=== PATIENT | male | born 1965 | race Caucasian/White ===

== ENCOUNTER 2024-12-23 13:05 | Outpatient (REF) | payer OTHER, SELFPAY ==
--- NOTE | ~2024-12-23 | XR_ITS ---
CLINICAL HISTORY: R07.81 - Pleurodynia Single view of the chest with left rib films. COMPARISON: None FINDINGS: Normal heart and mediastinal contours. Minimal subsegmental atelectasis along the left lung base. No pleural effusion or pneumothorax. No fracture identified. IMPRESSION: 1. Minimal subsegmental atelectasis along the left lung base. 2. No rib fracture identified. This document has been electronically signed by: Wei Abbott MD on 12/23/2024 15:53:03
--- OUTSIDE RECORDS SUMMARY | 2024-12-23 17:34 | XMS_ITS | Clinical Summary ---
Author Organization [facility] Address [address] [place] [address] Care Team Providers Care Fashion Consultant Name Role Phone Nena Dooley Primary Care Provider [phone] Nena Dooley Unavailable [phone] Medications Multiple Vitamin (Multivitamins) capsule TAKE 1 CAPSULE DAILY. capsule 0 09/08/2015 Active Atorvastatin Calcium (LIPITOR) 20 MG tablet TAKE 1 TABLET DAILY DIRECTED. 90 0 09/08/2015 Active Sildenafil Citrate (Viagra) 100 MG tablet TAKE 1 TABLET DAILY 1 HOUR BEFORE NEEDED 1 0 03/28/2017 Active Active Problems Problem Noted Date Diagnosed Date Preop examination 08/13/2017 Erectile dysfunction 03/28/2017 Overview (10/05/2023): Impression - [id number]: Rx for Viagra 50mg. ADRs and alternatives discussed. Caution re: hypotension. Take 1 tablet 1 hour prior to activity and if tolerated can take 2 tablets prn. Intertrigo 03/28/2017 Overview (10/05/2023): Impression - 13Xkg6733: Recommend fluconazole PO and clotraimzole cream prn. Encouraged to keep the area as dry as possible. Chronic urethral stricture 03/28/2017 Overview (10/05/2023): Impression - 67Uid1578: Referred to urology, Dr. Mitchel Shaver 01/13/2017 Omid nunes 01/13/2017 Overview (10/05/2023): Impression - 29Ujp5023: Change to nystatin. Counseled re: need to use TID regularly. Keep dry. If no better in 6 weeks, refer back to [facility] for evaluation Complaints of leg weakness 01/02/2016 Overview (10/05/2023): Impression - 59Tcs9861: refer to PT Anterior tibialis tendinitis, left 01/02/2016 Overview (10/05/2023): Impression - 38Bhg8402: Ice, elevation, no recreational walking. Prescription for diclofenac sodium 75 milligrams twice a day. He is aware he needs to stop this 7 days before the surgery Hip joint stiffness 09/08/2015 Overview (10/05/2023): Impression - 08Sep2015: X-ray left hip Overweight (BMI 25.0-29.9) 06/20/2015 Vitamin D deficiency 12/30/2014 Overview (10/05/2023): Impression - 07Hkc8278: Encouraged 1000 IU Vitamin D daily in [...] 3 months, no appointment needed Impression - 57Gmv4832: Controlled, continue current treatment. Immunizations Name Administration [...] 11:33 AM EDT [facility] Date/Time: [id number] [facility] Testing performed at: 1, [facility], [address] [place] [address], [address], [place], [address], Print Inspector: Enedina Orozco MD [facility] Date/Time: [id number] [facility] Results Received Date/Time: [id number] [facility] Reported Date/Time: [id number] Rory Alvarez MD LABORATORY Final Res ult PHCT CONVERSIONS from Last 3 Months or Most Recently Relevant to Health Maintenance Care Teams Fashion Consultant Relationship Specialty Start Date End Date Nena Dooley PA [address] [place] [address] PCP - General 04/07/23 Nena Dooley PA [address] [place] [address] PCP - Backup PCP Family Medicine 10/02/23
--- OUTSIDE RECORDS SUMMARY | 2024-12-23 17:34 | XMS_ITS | Clinical Summary ---
Author Organization [facility] Address [address] [place] [address] Care Team Providers Care Opener Tender Name Role Phone Rory Alvarez MD Primary [...] age to complete this topic Care Teams Opener Tender Relationship Specialty Start Date End Date Rory Alvarez MD PCP - General Family Medicine 07/04/15
--- OUTSIDE RECORDS SUMMARY | 2024-12-23 17:34 | XMS_ITS | Clinical Summary ---
Author Organization [facility] Address [address] [place] [address] Care Team Providers Care Doctor'S Assistant Name Role Phone Unavailable Primary Care Provider [...]
--- OUTSIDE RECORDS SUMMARY | 2024-12-23 17:34 | XMS_ITS | Clinical Summary ---
Author Organization [facility] Address [address] [place] [address] Care Team Providers Care Remote Control Assembler Name Role Phone Nena Dooley PA-C Primary [...] Inactivated Comments 08/19/2017 7:49 AM Care Teams Remote Control Assembler Relationship Specialty Start Date End Date Nena Dooley, NOVAC 8-D CANAL [facility] [place] [address] PCP - General Surgery, General 04/16/17
== END 2024-12-23 13:06 | disposition home or self-care (01) ==
LOC: HO.HMGCX 13:05
PROVIDERS: Visit Provider Physician Assistant
DX: R07.81 Pleurodynia (principal)
CPT/HCPCS: 71101

== ENCOUNTER 2024-12-23 13:05 | Outpatient (AMB) | payer OTHER, SELFPAY ==
--- NOTE | 2024-12-23 14:33 | AM.OFFWIN_ITS ---
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 Patient Tobacco Use Status: Never used Tobacco Allergies No Known Allergies Allergy (Verified 12/23/24 14:35) Do you need a note to return to daycare/school/sports/work: No HPI HPI Comments History of Present Illness Details History of Present Illness - The patient is a 59-year-old male pres enting with left sided rib pain x 4 days. - Pain began a few days ago after engagi ng in a physical workout following a long period of inactivity. - Described as becoming more painful wit h palpation, the pain is localized to the rib area, predominantly anteriorly. - The patient denies respiratory symptom s, recent trauma, fevers, or significant changes in urinary function or history of kidney stones. The pain is not worse with deep inspiration. - There is a history of gastroesophageal reflux disease, but no current reflux symptoms were noted. Physical Exam General: Cooperative, healthy appearing, comfortable, no acute distress and well developed Orientation: Patient oriented x3 Limitations: No limitations Head: Normal to inspection Ears: Hearing grossly normal bilaterally Nose: Normal External nose present Face and sinus: Normal facial exam Eyes: Appearance normal, both eyes and all related structures Neck: Normal visual inspection and Yes full ROM Chest: TTP left midaxiallary line T7-T8 area, no skin changes noted, no ecchymosis or rashes Respiratory: Normal respiratory effort and able to speak in complete sentences. Clear to auscultation bilaterally Cardiovascular: Regular rate and rhythm. Normal S1 and S2 Skin: No rashes or lesions noted Neuro: Patient oriented x3 Extremities: Normal to inspection PFSH Social History Patient Tobacco Use Status: Never used Tobacco Review of Systems Const All systems reviewed & are unremarkable except as noted in HPI and below Physical Exam Vital Signs: Last Vital Signs Pulse 73 12/23/24 14:35 BP 126/80 12/23/24 14:35 Pulse Ox 98 12/23/24 14:35 Oxygen Delivery Method Room Air 12/23/24 14:35 Assessment & Plan Assessment & Plan (1) Rib pain on left side: Code(s): R07.81 - Pleurodynia Plan: VSS, pt well appearing and PE remarkable for reproducible left sided rib pain at the midaxillary line. Likely musculoskeletal from swimming, which is a new activity. However, as pain is getting worse over the last week, instead of better, I have ordered a rib and chest x-ray to rule out rib fracture and evaluate any underlying conditions. I have recommended Aleve naproxen twice daily for three days to manage the patient's musculoskeletal pain. The patient is advised to refrain from strenuous workouts until pain subsides to prevent further aggravation. Patient was informed and verbally consented to the use of an ambient scribe for clinic note documentation during this visit. Orders: Orders XR ribs LT min 3V w CXR1V Today R07.81 - Pleurodynia Coding Level of Care Code Est Pt Level 4 (12029) Diagnoses Rib pain on left side R07.81
[2024-12-23 14:35] VITALS: BP 126/80; PULSE 73; O2SAT 98
--- OUTSIDE RECORDS SUMMARY | 2024-12-23 15:24 | XMS_ITS | Patient Health Record ---
Author Organization [facility] Address [address] [place] [address] Care Team Providers Care Camera Repairer Name Role Phone LELE DELCID Primary Care Provider Allergies No Known Allergies Reason For Referral No Information Social History Tobacco Use: Social History Observation Description Date Details (start date - stop date) Never Smoker NA - NA Sex Assigned At : Social History Observation Description Sex Assigned At Male Tobacco Use/Smoking Question Answer Notes Are you a: never smoker Sexual History Question Answer Notes Had sex in the past 12 months (vaginal, oral, or anal)? Yes with Women only Use protection? Yes How often? All of the time Prevention strategies discussed: Condoms Have you ever had a Sexually transmitted disease ? No SBIRT (2018 Edition) Question Answer Notes Patient refused/declined SBIRT screening at this time? No 1. How often do you have a drink containing alco hol? Monthly or less 2. How many drinks containin g alcohol do you have on a typical day when you are drinking? 1 or 2 3. How often do you have five or more drinks on one occasion? Never SCORE 1 Interpretation Negative How many times in the past y ear have you used an illegal drug or used a prescription medication for non-medical reasons? 0 Total Count 0 Interpretation Negative Problems Problem Type SNOMED Code ICD Code Onset Dates Problem Status W/U Status Risk Notes Problem 256565167 Tinea cruris (B35.6) Active confirmed 50% improvement with ketoconazole; trial terbinafine topical. Pt defers oral tx at this time Problem 86169064494208230 Impingement syndrome of right shoulder (M75.41) Active confirmed Problem 352889396742411 Impingement syndrome of left shoulder (M75.42) Active confirmed Problem Unspecified membranous urethral stricture, male (N35.913) Active confirmed Hx 4 surgeries. Chronic voiding and storage sx. Problem Hyperlipidemia (86124709) Hyperlipidemia (E78.49) Active confirmed 01/2022: TC 203, HDL 40, LDL 135. Problem 236121931 Overweight (BMI 25.0-29.9) (E66.3) Active confirmed Problem 82438832 Hemorrhoids, external (K64.4) Active confirmed Problem Tear of right glenoid labrum, initial encounter (S43.431A) Active confirmed 11/2021: Right shoulder MRI tear of superior and posterior labrum with associated paralabral cyst. Problem Tear of left glenoid labrum, initial encounter (S43.432A) 2021 Active confirmed 11/2021: Left shoulder MRI large tear of anterior labrum with smaller tear of posterior labrum without involvement of biceps labral anchor. No rotator cuff tear with mild supraspinatus tendinosis. Plan Of Treatment No Information Insurance Providers Payer Name Payer Address Payer Phone Subscriber Number Group Number Insured Name Patient Relationship to Insured Coverage Start Date Coverage End Date MEDICAID EST PT [address] [address] [place] [phone] [id number] ENMANUEL BEARD Self - patient is the insured 0 Medical (General) History Medical History History ICD Code HIGH CHOLESTEROL- PAST Right rotator cuff issues Surgical History Surgery Date(Month/Year) APPENDIX URINARY TRACT STRICTURE X 2016 Hospitalization History Reason Date(Month/Year)
--- OUTSIDE RECORDS SUMMARY | 2024-12-23 15:24 | XMS_ITS | Clinical Summary ---
Author Organization [facility] Address [address] [place] [address] Care Team Providers Care Stay Cutter Name Role Phone Nena Dooley PA-C Primary Care Provider Allergies No known active allergies Medications atorvastatin (LIPITOR) 20 MG tablet Take 20 mg by mouth daily. as directed 1 7 Active multivitamin (multivitamin) Tab tablet Take 1 tablet by mouth daily. Active VIAGRA 100 MG tablet TAKE 1 TABLET DAILY 1 HOUR BEFORE NEEDED 0 7 Active tadalafil (CIALIS) 20 MG tabletIndications: Erectile dysfunction due to arterial insufficiency Take 1 tablet (20 mg total) by mouth daily as needed for erectile dysfunction. 6 tablet 3 8 Active Active Problems Problem Noted Date Diagnosed Date Urethral stricture 08/19/2017 Family History Medical History Relation Name Comments Stroke Brother 1 68 No Known Problems Brother 2 No Known Problems Brother 3 Relation Name Status Comments Brother 1 68 Alive Brother 2 Alive Brother 3 Alive Father (Age 89) natural Mother (Age 79) Natural Social History Tobacco Use Types Packs/Day Years Used Date Smoking Tobacco: Never Smokeless Tobacco: Never Alcohol Use Standard Drinks/Week Comments Yes 0 (1 standard drink = 0.6 oz pur e alcohol) once per month Sex and Gender Information Value Date Recorded Sex Assigned at Not on file Legal Sex Male 3:55 PM EDT Gender Identity Not on file Sexual Orientation Not on file Last Filed Vital Signs Vital Sign Reading Time Taken Comments Blood Pressure 105/66 08/19/2017 10:15 AM EST Pulse 98 08/22/2017 8:38 AM EST Temperature 36.5 ??C (97.7 ??F) 08/19/2017 9:30 AM ES T Respiratory Rate 16 08/19/2017 10:15 AM EST Oxygen Saturation 99% 08/19/2017 10:15 AM EST Inhaled Oxygen Concentration - - Weight 74.8 kg (165 lb) 10/01/2017 8:36 AM EST Height 172.7 cm (5' 8 ) 10/01/2017 8:36 AM EST Body Mass Index 25.09 10/01/2017 8:36 AM EST Plan of Treatment Health Maintenance Due Date Last Done Comments Hepatitis C Virus Screening 1963 HIV Screening 1976 DTaP/Tdap/Td Vaccines (1 - Tdap) 1982 Colonoscopy 2008 Pneumococcal Vaccines 50+ (1 of 1 - PCV) 2013 Zoster (Shingles) Vaccine (1 of 2) 2013 Influenza Vaccine 04/01/2024 COVID-19 Vaccine (1 - 2023-2 5 season) 2024 RSV Vaccine 60 years and old er and Patients (1 - 1-dose 75+ series) 2038 Hepatitis B Vaccines Aged Out No long er eligible based on patient's age to complete this topic Insurance Advance Directives * Full Code (Latest Code Status on File) Date Activated Date Inactivated Comments 08/19/2017 7:49 AM Care Teams Stay Cutter Relationship Specialty Start Date End Date Nena Dooley, NOVAC 8-D CANAL [facility] [place] [address] PCP - General Surgery, General 04/16/17
--- OUTSIDE RECORDS SUMMARY | 2024-12-23 15:24 | XMS_ITS | Clinical Summary ---
Author Organization [facility] Address [address] [place] [address] Care Team Providers Care State Trooper Name Role Phone Nena Dooley Primary Care Provider [phone] Nena Dooley Unavailable [phone] Medications Multiple Vitamin (Multivitamins) capsule TAKE 1 CAPSULE DAILY. capsule 0 09/08/2015 Active Atorvastatin Calcium (LIPITOR) 20 MG tablet TAKE 1 TABLET DAILY DIRECTED. 90 0 09/08/2015 Active Sildenafil Citrate (Viagra) 100 MG tablet TAKE 1 TABLET DAILY 1 HOUR BEFORE NEEDED 1 0 03/28/2017 Active Active Problems Problem Noted Date Diagnosed Date Preop examination 08/13/2017 Erectile dysfunction 03/28/2017 Overview (10/05/2023): Impression - 22Stj4785: Rx for Viagra 50mg. ADRs and alternatives discussed. Caution re: hypotension. Take 1 tablet 1 hour prior to activity and if tolerated can take 2 tablets prn. Intertrigo 03/28/2017 Overview (10/05/2023): Impression - 86Zby5556: Recommend fluconazole PO and clotraimzole cream prn. Encouraged to keep the area as dry as possible. Chronic urethral stricture 03/28/2017 Overview (10/05/2023): Impression - 00Onk1364: Referred to urology, Dr. Mitchel Shaver 01/13/2017 Omid nunes 01/13/2017 Overview (10/05/2023): Impression - 28Yej2040: Change to nystatin. Counseled re: need to use TID regularly. Keep dry. If no better in 6 weeks, refer back to [facility] for evaluation Complaints of leg weakness 01/02/2016 Overview (10/05/2023): Impression - [id number]: refer to PT Anterior tibialis tendinitis, left 01/02/2016 Overview (10/05/2023): Impression - 96Ylp7436: Ice, elevation, no recreational walking. Prescription for diclofenac sodium 75 milligrams twice a day. He is aware he needs to stop this 7 days before the surgery Hip joint stiffness 09/08/2015 Overview (10/05/2023): Impression - 08Sep2015: X-ray left hip Overweight (BMI 25.0-29.9) 06/20/2015 Vitamin D deficiency 12/30/2014 Overview (10/05/2023): Impression - 11Mpt8067: Encouraged 1000 IU Vitamin D daily in addition to multi vitamin Depression 11/29/2014 Pain in joint of left shoulder 09/27/2011 Overview (10/05/2023): Impression - 03Jul2015: Suspect rotator cuff tendonitis and probable tear Impression - 08Sep2015: It is up to him however I did recommend PT and issue referral Lower back pain 01/09/2011 Dyslipidemia 01/09/2011 Overview (10/05/2023): Impression - 08Sep2015: Prescription for atorvastatin 20 milligrams daily sent, recheck labs 3 months, no appointment needed Impression - 30Rcg3722: Controlled, continue current treatment. Immunizations Name Administration Dates Next Due Influenza (SEASONAL) - 06/09/2017 Influenza,injectable,quad,Prsrv Fr 06/09/2017 Tdap 03/28/2017,05/16/2006 Family History Medical History Relation Name Comments CAD/PVD - Early Brother Coronary Art francisco Disease : Brother Diabetes Brother Type 2 Diabetes Mellitus : Brother Stroke Brother Stroke Syndrome : Brother Dementia Father Alzheimer Disea se : Father Lipid/Cholesterol Abnormality Other Hyperlipidemia : Family History Relation Name Status Comments Brother Father Other Social History Tobacco Use Types Packs/Day Years Used Date Smoking Tobacco: Never Assessed Comments:Smoking Status:No c urrent tobacco use Sex and Gender Information Value Date Recorded Sex Assigned at Not on file Legal Sex Male 7:30 PM EDT Gender Identity Not on file Sexual Orientation Not on file Last Filed Vital Signs Vital Sign Reading Time Taken Comments Blood Pressure 110/80 08/13/2017 1:26 PM EST LUE/Sitting LUE/Sitting Pulse 63 08/13/2017 1:26 PM EST Temperature 36.9 ??C (98.4 ??F) 08/13/2017 1 :26 PM EST Temporal Respiratory Rate 12 08/13/2017 1:26 PM EST Normal Oxygen Saturation 98% 08/13/2017 1:2 6 PM EST Inhaled Oxygen Concentration - - Weight 77.6 kg (170 lb 15.8 oz) 08/13/2017 1:26 PM EST Height 168.9 cm (5' 6.5 ) 08/13/2017 1: 26 PM EST Body Mass Index 27.18 08/13/2017 1:26 PM EST Plan of Treatment Health Maintenance Due Date Last Done Comments Pneumococcal 50+ years (1 of 1 - PCV) 2013 Zoster (Shingrix) (1 of 2) 2013 COVID-19 Vaccine (2023-2 5 season) 2024 Influenza (#1) 2024 06/09/2017, 06/09/2017 DTaP/Tdap/Td (3 - Td or Tdap) 03/28/2027, 05/16/2006 RSV (1 - 1-dose 75+ series) 2038 Hepatitis C Screening Completed 01/02/2016 , 01/04/2014 HPV Vaccine Aged Out No longer eligi ble based on patient's age to complete this topic Hep A Aged Out No longer eligi ble based on patient's age to complete this topic Hep B Aged Out No longer eligi ble based on patient's age to complete this topic Hib Aged Out No longer eligi ble based on patient's age to complete this topic Meningococcal ACWY Aged Out No longer eligible based on patient's age to complete this topic Zoster (Zostavax) Discontinued Procedures Procedure Name Priority Date/Time Associated Diagnosis Comments HEPATITIS C ANTIBODY W/ REFLEX TO RNA, QN, RT PCR Routine 01/02/2016 3:26 PM EDT from Last 3 Months or Most Recently Relevant to Health Maintenance Results * HEPATITIS C ANTIBODY W/ REFLEX TO RNA, QN, RT PCR (01/02/2016 3:26 PM EDT) Hepatitis C virus Ab NON-REACTI VE NON-REACT SHEN PHCT CONVERSIONS Hepatitis C virus Ab Signal/Cutoff 0.05 <1.00 PHCT CONVERSIONS 01/02/2016 3:26 PM EDT Narrative PHCT CONVERSIONS - 01/03/2016 11:33 AM EDT [facility] Date/Time: [id number] [facility] Testing performed at: 1, [facility], [address] [place] [address], [address], [place], [address], Accountant Machine Processing: Enedina Orozco MD [facility] Date/Time: [id number] [facility] Results Received Date/Time: [id number] [facility] Reported Date/Time: [id number] Rory Alvarez MD LABORATORY Final Res ult PHCT CONVERSIONS from Last 3 Months or Most Recently Relevant to Health Maintenance Care Teams State Trooper Relationship Specialty Start Date End Date Nena Dooley PA [address] [place] [address] PCP - General 04/07/23 Nena Dooley PA [address] [place] [address] PCP - Backup PCP Family Medicine 10/02/23
--- OUTSIDE RECORDS SUMMARY | 2024-12-23 15:24 | XMS_ITS | Clinical Summary ---
Author Organization [facility] Address [address] [place] [address] Care Team Providers Care Borderer Name Role Phone Rory Alvarez MD Primary Care Provider Un available Allergies No known active allergies Medications No known medications Social History Tobacco Use Types Packs/Day Years Used Date Smoking Tobacco: Never Assessed Sex and Gender Information Value Date Recorded Sex Assigned at Not on file Gender Identity Not on file Sexual Orientation Not on file Plan of Treatment Health Maintenance Due Date Last Done Comments Hepatitis C Screening 1965 COVID-19 Vaccine (#1) 1963 Depression Screening 1975 Preventative Health Evaluation 1981 DTap / Tdap / Td (1 - Tdap) 1982 Colon Cancer Screening (Colonoscopy) 2008 Shingrix-Zoster Vaccine (1 of 2) 2013 Influenza Vaccine (#1) 2024 RSV Adult > 60+ Yrs or Pregn ant (1 - 1-dose 75+ series) 2038 Hepatitis B Vaccines Aged Out No long er eligible based on patient's age to complete this topic Pneumococcal Vaccine Aged Out No long er eligible based on patient's age to complete this topic RSV Ped < 20 months Aged Out No longe r eligible based on patient's age to complete this topic Care Teams Borderer Relationship Specialty Start Date End Date Rory Alvarez MD PCP - General Family Medicine 07/04/15
--- OUTSIDE RECORDS SUMMARY | 2024-12-23 15:24 | XMS_ITS | Clinical Summary ---
[facility] Organization [facility] Address [address] [place] [address] Care Team Providers Care Inspector Outside Production Name Role Phone Unavailable Primary Care Provider Unavailabl e Social History Tobacco Use Types Packs/Day Years Used Date Smoking Tobacco: Never Assessed Sex and Gender Information Value Date Recorded Sex Assigned at Not on file Legal Sex Male 1:39 AM EST Gender Identity Not on file Sexual Orientation Not on file Plan of Treatment Not on file
== END 2024-12-23 14:52 | disposition home or self-care (01) ==
PROVIDERS: Visit Provider Physician Assistant
DX: R07.81 Pleurodynia (principal)

== ENCOUNTER → 2024-12-23 14:53 | Outpatient (BNV) | payer OTHER, SELFPAY | PROVIDERS: Visit Provider Radiology Diagnostic Radiology | DX: R07.81 Pleurodynia (principal) | CPT/HCPCS: 71101 ==